=== PATIENT | female | born 1985 | race Two or more races ===

== ENCOUNTER 2024-01-27 09:44 | Emergency (ER) | payer BC ==
[~2024-01-27] VITALS: Ht 165.1 cm; Wt 63.0 kg
[2024-01-27] MEDS: normal saline 1000ml 1,000 ML IV ONE (11:23)
[2024-01-27] MEDS: dicyclomine 10 MG capsule PO ONE (11:31)
[2024-01-27] MEDS: ondansetron/PF 4mg/2ml inj IV ONE (11:39)
[2024-01-27] MEDS: ketorolac trometh 30MG/ML vial 30 MG/ML VIAL IV ONE (11:39)
[2024-01-27] MEDS: dexamethasone sod phosphate 10mg/ml inj IV STA (11:39)
[2024-01-27 13:54] LABS: URINE HCG NEGATIVE (NEG)
[2024-01-27 14:05] LABS: BILIRUBIN,URINE NEGATIVE (Neg); CLARITY,URINE CLEAR (Clear); COLOR,URINE YELLOW (Yellow); GLUCOSE, URINE NEGATIVE (Neg); KETONES,URINE 15 mg/dl (Neg); LEUKOCYTE ESTERASE ,URINE NEGATIVE (Neg); NITRITES, URINE NEGATIVE (Neg); OCCULT BLOOD,URINE SMALL (Neg); PROTEIN,URINE NEGATIVE (Neg); UROBILINOGEN,URINE 0.2 E.U/dL (0.2-1.0)
[2024-01-27 14:11] LABS: UA COLLECTION TYPE CLN CATCH MIDSTREAM
[2024-01-27 14:24] LABS: RBC,URINE 0-2 /HPF (0-2); WBC,URINE 0-4 /HPF (0-4)
[2024-01-27 14:25] LABS: BACTERIA,URINE NONE SEEN /HPF (Neg); MUCUS STRANDS NONE SEEN /LPF (Neg); SQUAMOUS EPITHELIAL CELL,UR FEW /LPF (FEW)
[2024-01-27] MEDS ORDERED: PRED20TA PO (14:34)
[2024-01-27] MEDS ORDERED: ALBU8HFA INH (14:34)
[2024-01-27] MEDS ORDERED: PROM118S5 PO (14:34)
[2024-01-27] MEDS ORDERED: COD30T PO (14:34)
[2024-01-27] MEDS ORDERED: AZIT250T PO (14:34)
[2024-01-27 14:48] VITALS: BP 112/66; PULSE 77; RESP 16; TEMP 98.9; O2SAT 98
== END 2024-01-27 14:50 | disposition home or self-care (01) ==
LOC: ER 09:45
DX: R50.9 Fever, unspecified (principal); Z20.822 Contact with and (suspected) exposure to COVID-19; B34.9 Viral infection, unspecified; Z98.890 Other specified postprocedural states
CPT/HCPCS: 36415; 71045; 81001; 81025; 87811; 96361; 96374; 96375; 99284; J1100; J1885; J2405; J7030